=== PATIENT | male | born 1955 | race Caucasian/White ===

== ENCOUNTER 2017-03-14 17:48 | Emergency (ER) | payer BC ==
[~2017-03-14] VITALS: Ht 182.9 cm; Wt 100.0 kg
[2017-03-14] MEDS ORDERED: IBUPROFEN 600 MG TAB PO ONE (18:30)
[2017-03-14 19:04] VITALS: BP_SYST 157; BP_SYST 158; BP_DIAS 75; BP_DIAS 82; PULSE 84; PULSE 89; RESP 16; TEMP 98.6; O2SAT 99
--- NOTE | 2017-03-14 19:24 | PD ---
HPI . Fall Chief Complaint: Fall Time Seen by Provider: 18:41 Travel History International Travel<30 days: No Contact w/Intl Traveler<30days: No Traveled to known affect area: No History of Present Illness HPI 61-year-old male patient presents emergency department for evaluation of right rib pain after falling on his right side this afternoon. Patient was on his knees pending down to evaluate the computer and lost balance and fell onto his right side. Patient states the only injury from the fall is right rib pain. Right arm has full range of motion and no pain. Patient denies hitting his head or losing consciousness. Patient states deep breathing and movement exacerbates the pain. PFSH Social History Tobacco Use: No Allergies-Medications (Allergen,Severity, Reaction): Coded Allergies: No Known Allergies (Unverified , 03/14/17) Review of Systems Except as stated in HPI: all other systems reviewed are Neg Physical Exam Narrative GENERAL: Well-nourished, well-developed 61-year-old male patient in no acute distress. Nontoxic appearing. SKIN: Focused skin assessment warm/dry. HEAD: Normocephalic. Atraumatic. NECK: Supple, trachea midline. No JVD or lymphadenopathy. CARDIOVASCULAR: Regular rate and rhythm without murmurs, gallops, or rubs. RESPIRATORY: Breath sounds equal bilaterally. No accessory muscle use. GASTROINTESTINAL: Abdomen soft, non-tender, nondistended. MUSCULOSKELETAL: Right rib tenderness to palpation. No obvious deformity, ecchymosis, erythema, cyanosis, or edema. BACK: Nontender without obvious deformity. No CVA tenderness. Data Data Last Documented VS Vital Signs Date Time Temp Pulse Resp B/P (MAP) Pulse Ox O2 Delivery O2 Flow Rate FiO2 03/14/17 19:04 98.6 84 16 158/75 (102) 99 Automatic Cuff Orders Orders Ribs, Uni (W/Exp Cxr-Min 3vw) (03/14/17 18:26) Ibuprofen (Motrin) (03/14/17 18:30) Resp Incentive Spirometry (03/14/17 ) MDM Medical Decision Making Medical Screen Exam Complete: Yes Emergency Medical Condition: Yes Differential Diagnosis Differential diagnoses include but not limited to right rib fracture, right rib contusion, fall Narrative Course 61-year-old male patient presents to emergency room for evaluation of right rib pain after falling this afternoon. Deep breathing and movement exacerbates the pain. X-ray of the right ribs ordered and pending. Ibuprofen ordered for pain. GRISEL Manrique assumes care for this patient. Please see his to his doctor mentation for further details and disposition. Donna Silva Mar 14, 2017 19:24
--- NOTE | 2017-03-14 19:33 | RADRPT ---
EXAM DATE/TIME: 03/14/2017 19:13 [facility] COMPARISON: No previous studies available for comparison. INDICATIONS : Pain post fall. MEDICAL HISTORY : None. SURGICAL HISTORY : None. ENCOUNTER: Initial ACUITY: 1 day PAIN SCORE: 10/10 LOCATION: Right Ribs. FINDINGS: Multiple views of the right ribs were performed. There is no evidence of displaced fracture. No nola tructive lesions or areas of periosteal thickening are seen. Expiratory view of the chest is negativ e for pneumothorax. The mediastinal structures are midline. CONCLUSION: Negative rib series with no fracture or pneumothorax. Moncho Cid MD on March 14, 2017 at 19:30 Board Certified Radiologist. This report was verified electronically.
[2017-03-14] MEDS ORDERED: NAPR500 PO (19:50)
--- NOTE | 2017-03-14 19:58 | PD ---
Physical Exam Narrative Patient was signed out to me by previous provider. Please see their documentation for full H&P. Briefly this is a 61-year-old male complaining of right-sided anterior rib pain after falling over while bent over. Patient denies hitting his head, loss consciousness, chest pain, abdominal pain, or shortness of breath. Patient is sharp stabbing like in nature is right lateral anterior chest wall approximately the fourth and fifth rib without radiation. Pain is worse with deep inspiration, movement, and palpation. Patient has anything making it better. GENERAL: Well-developed, overly nourished, in no acute distress, and non-ill appearing. SKIN: Focused skin assessment warm and dry. HEAD: Atraumatic. Normocephalic. EYES: Pupils equal and round. EOMI. No scleral icterus. No injection or drainage. ENT: No nasal bleeding or discharge. Mucous membranes pink and moist. NECK: Trachea midline. Supple. No nuclear rigidity. CARDIOVASCULAR: Regular rate and rhythm. No murmur appreciated. RESPIRATORY: No accessory muscle use. No respiratory distress. Clear to auscultation. Breath sounds equal bilaterally. Patient reports tenderness palpation over anterior chest wall approximately ribs 4 & 5. There is no bruising, crepitus, or step-off. GASTROINTESTINAL: Abdomen soft, non-tender, nondistended, and no guarding. Hepatic and splenic margins not palpable. No pulsatile mass. MUSCULOSKELETAL: No obvious deformities. No clubbing. No cyanosis. No edema. Full range of motion. NEUROLOGICAL: Awake and alert. No obvious cranial nerve deficits. Motor grossly within normal limits. Normal speech. PSYCHIATRIC: Appropriate mood and affect; insight and judgment normal. Data Data Last Documented VS Vital Signs Date Time Temp Pulse Resp B/P (MAP) Pulse Ox O2 Delivery O2 Flow Rate FiO2 03/14/17 20:04 03/14/17 19:04 98.6 84 16 99 Orders Orders Ribs, Uni (W/Exp Cxr-Min 3vw) (03/14/17 18:26) Ibuprofen (Motrin) (03/14/17 18:30) Resp Incentive Spirometry (03/14/17 ) Ed Discharge Order (03/14/17 19:58) [facility] Supervised Visit with SELENE: No Interpretation(s) Last Impressions Ribs X-Ray 03/14/171825 Signed Impressions: Service Date/Time: March 19:13 - CONCLUSION: Negative rib series with no fracture or pneumothorax. Moncho Cid MD Narrative Course The patient suffered a minor chest wall contusion. There is no clinical evidence to suggest intrathoracic injury nor cardiac injury at this time. The patient has no significant pain, shortness of breath or dyspnea. The patient moves air well without difficulty and is clear to auscultation. Heart sounds are audible without rubs, murmurs or gallops. There is no palpable crepitus. Pulses are symmetrical and strong. There is no significant tenderness over the lower chest to suggest injury to the liver nor spleen. Chest X-ray was normal without evidence of fracture, pneumothorax or hemothorax. The Mediastinum appeared within normal limits. Diagnosis was discussed with the patient. The patient is to return if develops any worsening pain difficulty breathing, or if coughs up blood or develops fever. Patient agrees with plan and was recommended to follow up with their regular physician. Patient in no obvious distress upon re-evaluation. All pertinent Radiology result(s) discussed with patient/family. Patient was asked if they wanted to speak to my attending, which the patient did not wish to do at this time. Any questions/concerns in reference to patient diagnosis/condition discussed and clarified prior to patient's discharge. Reinforced sheer importance of close follow up with patient's primary physician or primary care clinic. Instructed patient to return to ED immediately, if symptoms return/worsen. Patient showed understanding of above instructions. Further instructions and recommendations were detailed in discharge paperwork. Patient ambulated without difficulty out of ED at discharge. Diagnosis Primary Impression: Bruised ribs Qualified Codes: S20.211A - Contusion of right front wall of thorax, initial encounter Patient Instructions: General Instructions, Rib Contusion (ED) Additional Instruction: Follow-up with your primary care physician next week for reevaluation. Take all medication as prescribed. Plan ice to affected area 20 minutes per hour as needed for pain. Use incentive spirometer 10 times per hour as instructed to decrease chance of getting pneumonia. Return to the emergency department if symptoms get worse. Med/Other Pt SpecificInfo: Prescription(s) given Scripts Naproxen (Naprosyn) 500 Mg Tab 500 MG PO BID, #14 TAB 0 Refills Prov: Michelle Meneses DO 03/14/17 Disposition: 01 DISCHARGE HOME Condition: Stable Darwin Mclaughlin Mar 14, 2017 19:58
== END 2017-03-14 20:13 | disposition home or self-care (01) ==
LOC: NEPK 17:48
DX: S20.211A Contusion of right front wall of thorax, initial encounter (principal); W18.39XA Other fall on same level, initial encounter
CPT/HCPCS: 71101; 94150; 99283